=== PATIENT | female | born 2000 | race Caucasian/White ===

== ENCOUNTER → 2023-07-13 10:41 | Outpatient (CLI) | payer OTHER, SELFPAY ==
[2023-07-14 14:47] LABS: Candida species Negative (Negative); Gardnerella vaginalis Negative (Negative); Trichomoas vaginalis Negative (Negative)
== END ==
PROVIDERS: Visit Provider Student in an Organized Health Care Education/Training Program
DX: N89.8 Other specified noninflammatory disorders of vagina (principal)
CPT/HCPCS: 87480; 87510; 87660

== ENCOUNTER → 2023-07-21 15:24 | Outpatient (CLI) | payer OTHER, SELFPAY ==
[2023-07-21 15:49] LABS: Add Manual Diff / Slide Review NO; Basophils Absolute Auto 0 /uL (0-100); Basophils Percent Auto 0.4 % (0-2); Eosinophils Absolute Auto 100 /uL (0-450); Hematocrit 40.1 % (36-46); Hemoglobin 13.6 g/dL (12.0-16.0); Lymphocytes Absolute Auto 1900 /uL (1100-4500); Lymphocytes Percent Auto 14.7 % (25-40); Mean Corpuscular HGB Conc 33.9 % (30-36); Mean Corpuscular Hemoglobin 31.4 PG (26-34); Mean Corpuscular Volume 92.8 fL (80-100); Monocytes Absolute Auto 900 /uL (0-900); Monocytes Percent Auto 7.2 % (3-14); Neutrophils Absolute Auto 9700 /uL (1500-7000); Neutrophils Percent Auto 76.7 % (50-75); Platelet Count 362 X10^3/uL (150-400); Red Blood Cell Count 4.32 X10^6/uL (4.0-5.2); Red Cell Distribution Width 13.2 % (11.6-14.8); White Blood Cell Count 12.7 X10^3/uL (4.5-11.0)
[2023-07-21 17:25] LABS: HCG Quantitative /Beta subunit 24905 mIU/mL
[2023-07-21 18:36] LABS: Urine N gonorrhoeae NOT DETECTED
[2023-07-21 18:58] LABS: Urine Chlamydia NOT DETECTED
[2023-07-23 06:14] LABS: RPR Screen Non Reactive (Non Reactive)
[2023-07-23 10:16] LABS: Varicella IgG Antibody 1757 index (Immune >165)
[2023-07-23 23:40] LABS: HIV 1 & 2 Ab/Ag 4th Gen Combo NEGATIVE (NEGATIVE); Hep C Virus Ab w/Reflex Quant NEGATIVE s/c (NEGATIVE); Hepatitis B Surface Antigen NEGATIVE s/c (NEGATIVE)
== END ==
PROVIDERS: Referring Provider Obstetrics & Gynecology; Visit Provider Obstetrics & Gynecology
DX: Z34.01 Encounter for supervision of normal first pregnancy, first trimester (principal); N91.2 Amenorrhea, unspecified
CPT/HCPCS: 36415; 80055; 83036; 84702; 86787; 86803; 86850; 86900; 86901; 87389; 87491; 87591

== ENCOUNTER → 2023-07-23 09:05 | Outpatient (CLI) | payer OTHER, SELFPAY ==
[2023-07-23 11:02] LABS: HCG Quantitative /Beta subunit 30237 mIU/mL
== END ==
LOC: LAB 09:06
PROVIDERS: Referring Provider Obstetrics & Gynecology; Visit Provider Obstetrics & Gynecology
DX: N91.2 Amenorrhea, unspecified (principal)
CPT/HCPCS: 36415; 84702

== ENCOUNTER 2023-08-07 13:37 | Day surgery (SDC) | payer OTHER, SELFPAY ==
[2023-08-04 13:38] VITALS: BMI 31.2
[2023-08-07] VITALS (8 sets, daily range): BP systolic 110–143; BP diastolic 65–81; PULSE 70–106; RESP 12–22; TEMP 36.2–36.8; O2SAT 98–100; BMI 31.2
--- NOTE | 2023-08-07 | PATH_ITS ---
[facility] Accession Number: [id number] No. of containers..01 Tissue . 01 Material submitted: . product of conception - PRODUCTS OF CONCEPTION . 01 Diagnosis: PRODUCTS OF CONCEPTION, CURETTINGS: Scattered hydropic villi with mildly abnormal villous architecture; see comment. LALO 08/14/2023 1131 Local . 01 Comment: Given the mildly abnormal villous architecture, a p57 immunostain is performed and is positive in the villous stromal cells and the cytotrophoblasts, excluding a complete mole. The differential diagnosis includes a partial mole and hydropic villi. Tissue will be sent for ploidy analysis by flow and the results will be reported in an addendum. . . * This test was developed and its performance characteristics determined by [facility]. It has not been cleared or approved by the U.S. Food and Drug Administration. The FDA has determined that such clearance or approval is not necessary. This test is used for clinical purposes. It should not be regarded as investigational or for research. . 01 Electronically signed: . Rosa Laguna MD, Pathologist NPI- [id number] . 01 Gross description: . Received in formalin with two identifiers and products of conception, are multiple vieyra spongy to membranous soft tissue fragments admixed with muchohemorrhagic material aggregating to 8.1 x 6.2 x 1.3 cm. No tissue is identified. Manager Agricultural sections are submitted in cassettes A1-A2. ([id number]) /LALO 08/11/2023 1141 Local . 01 Pathologist provided ICD-10: O02.1 . 01 CPT . 443051, [id number] Specimen Comment: A courtesy copy of this report has been sent to [facility] Pathology Performed at: 01 [facility] [address], [place], [place] [id number] MD Leodan Winston MD Phone: [phone]
[2023-08-07] MEDS: ACETAMINOPHEN 325 MG TABLET 975 MG PO (15:15)
--- NOTE | 2023-08-07 15:36 | SUR.OPER ---
Lithotomy on padded OR bed, head on pillow, arms secured on padded arm boards at <90 degrees abduction. Legs secured in padded yellow fins stirrups.
--- NOTE | 2023-08-07 16:02 | P.OP.PRE_ITS ---
Pre-operative Note Interval Note History & Physical reviewed/Exam performed by Physician: Yes Changes to H&P: No H&P completed within 30 days and has changed as indicated here:: see H&P from 08/04/23 Patient and I discussed the procedure, and we discussed the risk/benefit/alte rnatives to the procedure. Pt desires to proceed as planned.
[2023-08-07] MEDS: SILVER NITRATE STICK 2 EACH TOP (16:48)
--- NOTE | 2023-08-07 16:54 | P.OP_ITS ---
Operative Date/Time/Diagnoses Date of procedure: 08/07/23 Time of procedure: 16:30 Pre-op diagnosis: Missed Post-op diagnosis: same Procedure & Clinicians Procedure: Suction dilation and curettage Same procedure as scheduled: Yes Indications: 23yo [id number] with missed . In review of her options, patient desired surgical management, thus she was counseled and consented for a suction D&C. Surgeon: Cassandra Funez Click Yes if Unassisted: Yes Anesthesia Type: General Operative Notes Findings: Small amount of tissue obtained. Slow uterine bleeding noted at the end of the case. Specimen(s): other (products of conception) Estimated Blood Loss (mL): 100 Blood products transfused: none Procedure in detail: The risks, benefits, indications and alternatives of the procedure were reviewed with the patient and informed consent was obtained. The pt was taken to the operating room where anesthesia was obtained without difficulty. The pt was then placed in the low lithotomy position using gel-padded Kwan Stirrups. SCDs were placed bilaterally for VTE prophylaxis. The pt was then prepped and draped in the sterile fashion. A sterile speculum was placed in the patient?s vagina and the cervix was visualized.? A single tooth tenaculum was used to grasp the anterior lip of the cervix. The cervix was then gently, serially dilated to a size 8mm Hegar dilator. A 7mm curved suction catheter was then introduced into the uterine cavity and gently advanced to the uterine fundus. The suction device was then activated to 60mmHg and the catheter was rotated to clear the uterus of products of conception. Several passes were performed with a small amount of tissue obtained. A gentle, sharp curettage was then performed until a gritty texture was noted. All tissue was sent to pathology for review. The single tooth tenaculum was then removed from the anterior lip of the cervix. The tenaculum sites were noted to be hemostatic with pressure and silver nitrate. All instruments were then removed from the patient?s vagina. At the completion of the case the sponge and needle counts were correct x 2. The patient tolerated the procedure well and was taken to the PACU in stable condit ion. Complications: none Post-operative Condition: stable Disposition: PACU Plan for aftercare: Discharge to home once meeting criteria.
--- NOTE | 2023-08-07 17:48 | SUR.PHASEII ---
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 Pt able to contact her significant otyherr post procedure.
== END 2023-08-07 17:55 | disposition home or self-care (01) ==
PROVIDERS: Referring Provider Student in an Organized Health Care Education/Training Program; Visit Provider Student in an Organized Health Care Education/Training Program
PROC: (CPT 58120; principal; 2023-08-07 14:45)
DX: O02.1 Missed abortion (principal)
CPT/HCPCS: 59820; J1100; J1885; J2250; J2405; J2704; J3010

== ENCOUNTER → 2023-08-14 11:38 | Outpatient (CLI) | payer OTHER, SELFPAY | PROVIDERS: Referring Provider Obstetrics & Gynecology; Visit Provider Obstetrics & Gynecology | DX: Z34.00 Encounter for supervision of normal first pregnancy, unspecified trimester (principal) | CPT/HCPCS: 87086 ==

== ENCOUNTER → 2023-08-24 10:26 | Outpatient (CLI) | payer OTHER, SELFPAY | PROVIDERS: Referring Provider Student in an Organized Health Care Education/Training Program; Visit Provider Student in an Organized Health Care Education/Training Program | DX: O02.1 Missed abortion (principal) | CPT/HCPCS: 36415; 84702 ==

== ENCOUNTER → 2023-10-07 12:46 | Outpatient (CLI) | payer OTHER, SELFPAY ==
[2023-10-07 15:17] LABS: HCG Quantitative /Beta subunit < 2.39 mIU/mL
== END ==
LOC: LAB 12:47
PROVIDERS: Referring Provider Student in an Organized Health Care Education/Training Program; Visit Provider Student in an Organized Health Care Education/Training Program
DX: O02.1 Missed abortion (principal)
CPT/HCPCS: 36415; 84702

== ENCOUNTER 2025-02-16 17:20 | Emergency (ER) | payer OTHER, SELFPAY ==
[2025-02-16] VITALS (9 sets, daily range): BP systolic 102–140; BP diastolic 58–89; PULSE 74–106; RESP 18; TEMP 36.6; O2SAT 98–100; BMI 33.6
--- NOTE | 2025-02-16 17:41 | DI.US.S_ITS ---
PROCEDURE: US OB <= 14 WEEKS FETUS INDICATIONS: Possible retained products of conception TECHNIQUE: Real-time scanning was performed of the fetus and maternal pelvic organs, with image documentation. Endovaginal scanning was also performed to better visualize the fetus and maternal ovaries. COMPARISON: [facility], US, US OB <= 14 WEEKS FETUS, 07/21/2023, 15:10. FINDINGS: No ultrasound evidence of intrauterine gestational sac, no yolk sac, no pole. Differential diagnosis includes early normal intrauterine , abnormal intrauterine , cannot exclude ectopic . Uterus measures approximate 10.5 x 4.2 x 5.3 cm. Endometrial echo complex measures 2 mm. Left ovary measures approximately 3.7 x 2.3 x 1.9 cm. Right ovary measures approximately 4.3 by 2.4 by 2.8 cm with 1.1 cm anechoic structure may represent corpus luteum cyst or other structure. IMPRESSION: of unknown location as discussed above. Follow-up serial beta hCG and or ultrasound. Dictated by: Quoc Recinos M.D. on 02/16/2025 at 20:16 Approved by: Quoc Recinos M.D. on 02/16/2025 at 20:23
[2025-02-16 17:58] LABS: Add Manual Diff / Slide Review NO; Hematocrit 38.3 % (36-46); Hemoglobin 13.2 g/dL (12.0-16.0); Lymphocytes Absolute Auto 2100 /uL (1100-4500); Mean Corpuscular HGB Conc 34.5 % (30-36); Mean Corpuscular Hemoglobin 31.6 PG (26-34); Mean Corpuscular Volume 91.8 fL (80-100); Platelet Count 385 X10^3/uL (150-400)
--- NOTE | 2025-02-16 18:07 | ED.GENADULT ---
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 Patient has had intermittent spotting for the last one week, and seen multimedia technician providers [facility], had an ultrasound last week, and yesterday had pelvic ultrasound at [facility] showing 5 week gestational sac. Today she has had increased cramping and some bleeding, about 11:00 a.m. had small amount of tissue with clots, about 3:00 p.m. in toilet bowl had more silver/lopez tissue passage. Awaiting ultrasound here had further small amount of tissue mixed with clot. No recent or prior Rhogam shots recalled by patient. Related Data Previous Rx's ?Medication ?Instructions ?Recorded naproxen 500 mg tablet 500 mg PO Q8H PRN pain #30 tabs 01/20/25 tranexamic acid 650 mg tablet 1,300 mg (2 x 650 mg) PO TID Heavy 01/20/25 periods #30 tabs Allergies Allergy/AdvReac Type Severity Reaction Status Date / Time diphenhydramine Allergy Mild Hives Verified 02/16/25 17:28 Patient History Medical History (Updated 02/16/25 @ 21:33 by Rafa Amaro MD) Menstrual irregularity PMS (premenstrual syndrome) Hallucination, auditory Hallucination, visual Near sighted Generalized anxiety disorder (~2022) Missed Abnormal Pap smear of cervix Anorexia nervosa Surgical History (Updated 08/23/23 @ 17:57 by Kate Taylor) Anesthesia H/O dilation and curettage [place] teeth extracted (~2022) Family History (Updated 08/23/23 @ 18:00 by Kate Taylor) Mother Diabetes mellitus Hypertension Gestational diabetes Preeclampsia Overweight Father Generalized anxiety disorder Depression Eating disorder Sister Generalized anxiety disorder Depression Autism spectrum disorder Brother Autism spectrum disorder ADHD Unable to control anger Grandmother Alcoholism Generalized anxiety disorder Depression Hypertension Anxiety Mental health problem Overweight Grandfather Heart attack Diabetes mellitus Hypertension Grandmother Eating disorder Family history of type 2 diabetes mellitus Hypertension Mental health problem Grandfather Hypertension Social History marital status: unmarried,living together number of children: 0 household members: significant other lives independently: Yes caregiver/support person: No housing: condominium (duplex house) pets and animals: No education level: high school 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, 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 ) current occupational exposures/hazards: No special anat needs: No travel history: recent ([place], domestic) seatbelt use: always helmet use: Yes water heater temp set < 120 deg: Yes working smoke detector in home: Yes fire extinguisher in home: Yes carbon monox detector in home: Yes firearms in home: No do you feel safe at home: Yes Smoking Status: Never smoker second hand exposure: No alcohol intake: former substance use type: does not use during the past year weight has: other (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 HEAD: Atraumatic. Normocephalic. EYES: Pupils equal round and reactive. Extraocular motions intact. No scleral icterus. No injection or drainage. ENT: Nose without bleeding, purulent drainage. NECK: Trachea midline. Non tender CARDIOVASCULAR: Regular rate and rhythm without murmurs, gallops, or rubs. RESPIRATORY: Clear to auscultation. Breath sounds equal bilaterally. No wheezes, rales, or rhonchi. GASTROINTESTINAL: Abdomen soft, non-tender, nondistended. EXTREMITIES: No edema or joint tenderness. BACK: Nontender without deformity or crepitance. No flank tenderness. NEURO: AOx3. Motor functions grossly nonfocal. SKIN: No rash or erythema of visible areas Initial Vital Signs Initial Vital Signs: Vital Signs Pulse Rate 105 H 02/16/25 17:26 Pulse Oximetry 100 02/16/25 17:26 Course Orders Ordered: ED Orders 02/16/25 17:41 US OB <= 14 weeks fetus Stat 02/16/25 17:51 CBC Auto Diff [Complete Blood Count AUTO DIFF] Stat CMP [Comprehensive Metabolic Panel] Stat PT [Prothrombin Time INR] Stat PTT Partial Thromboplastin Nick Stat Test [HCG Quantitative /Beta subunit] Stat Vital Signs Vital signs: Vital Signs - 8 hr 02/16/25 17:26 02/16/25 17:28 02/16/25 17:30 Temperature 98 F Pulse Rate 105 H 99 H Respiratory Rate 18 Blood Pressure 140/89 125/78 Pulse Oximetry 100 100 Oxygen Delivery Method Room Air 02/16/25 17:30 02/16/25 17:45 02/16/25 17:45 Temperature Pulse Rate 91 H 106 H Respiratory Rate Blood Pressure 129/76 Pulse Oximetry 100 100 Oxygen Delivery Method 02/16/25 19:32 02/16/25 19:32 02/16/25 20:00 Temperature Pulse Rate 83 Respiratory Rate Blood Pressure 113/66 102/69 Pulse Oximetry 98 Oxygen Delivery Method 02/16/25 20:00 Temperature Pulse Rate 79 Respiratory Rate Blood Pressure Pulse Oximetry 98 Oxygen Delivery Method Medical Decision Making Lab Data Lab results reviewed: Yes I reviewed the patient's lab results. Lab results narrative: White blood cell count 10331, hemoglobin 13.2, platelets adequate. Glucose 108. Renal function, serum CO2, electrolytes normal. Liver functions normal. Serum quantitative hCG 279. 02/16/25 17:51 02/16/25 17:51 Labs: Lab Results 02/16/25 Range/Units 17:51 WBC 12.1 H (4.5-11.0) X10^3/uL RBC 4.17 (4.0-5.2) X10^6/uL Hgb 13.2 (12.0-16.0) g/dL Hct 38.3 (36-46) % MCV 91.8 (80-100) fL MCH 31.6 (26-34) PG MCHC 34.5 (30-36) % RDW 13.3 (11.6-14.8) % Plt Count 385 (150-400) X10^3/uL Neut % (Auto) 72.4 (50-75) % Lymph % (Auto) 17.7 L (25-40) % [place] % (Auto) 8.0 (3-14) % Eos % (Auto) 1.5 L (2-4) % Baso % (Auto) 0.4 (0-2) % Neut # (Auto) 8800 H (1873-5717) /uL Lymph # (Auto) 2100 (8853-8522) /uL [place] # (Auto) 1000 H (0-900) /uL Eos # (Auto) 200 (0-450) /uL Baso # (Auto) 0 (0-100) /uL PT 12.4 (9.4-12.5) SECONDS INR 1.1 (0.9-1.3) APTT 28 (25.1-36.5) SECONDS Sodium 138 (137-145) mmol/L Potassium 3.9 (3.4-5.1) mmol/L Chloride 105 (98-107) mmol/L Carbon Dioxide 23 (22-32) mmol/L BUN 9 (7-17) mg/dL Creatinine 0.68 (0.52-1.04) mg/dL Estimated GFR > 60 (>60) mL/min BUN/Creatinine Ratio 13.2 (6-22) Glucose 108 H (70-99) mg/dL Calcium 9.7 (8.4-10.2) mg/dL Total Bilirubin 0.3 (0.2-1.3) mg/dL AST 24 (14-36) IU/L ALT 19 (<35) IU/L Alkaline Phosphatase 52 (38-126) U/L Total Protein 8.2 (6.3-8.2) g/dL Albumin 4.9 (3.5-5.0) g/dL Globulin 3.3 (1.7-4.1) g/dL Albumin/Globulin Ratio 1.5 (1.0-2.8) HCG, Quant 279.76 mIU/mL Imaging Data Ultrasound pelvis: Radiologist's Impression: [address] [address] Ultrasound Report Signed Patient: Enid Kumar MR#: [id number] : 2000 Acct:[id number] Age/Sex: 24 / F Date of Service: 02/16/25 Loc: ED Accession Number: [id number] Procedure: US OB <= 14 weeks fetus Ordering Provider: Ike Russell MD PROCEDURE: US OB <= 14 WEEKS FETUS INDICATIONS: Possible retained products of conception TECHNIQUE: Real-time scanning was performed of the fetus and maternal pelvic organs, with image documentation. Endovaginal scanning was also performed to better visualize the fetus and maternal ovaries. COMPARISON: [facility], US, US OB <= 14 WEEKS FETUS, 07/21/2023, 15:10. FINDINGS: No ultrasound evidence of intrauterine gestational sac, no yolk sac, no pole. Differential diagnosis includes early normal intrauterine , abnormal intrauterine , cannot exclude ectopic . Uterus measures approximate 10.5 x 4.2 x 5.3 cm. Endometrial echo complex measures 2 mm. Left ovary measures approximately 3.7 x 2.3 x 1.9 cm. Right ovary measures approximately 4.3 by 2.4 by 2.8 cm with 1.1 cm anechoic structure may represent corpus luteum cyst or other structure. IMPRESSION: of unknown location as discussed above. Follow-up serial beta hCG and or ultrasound. Dictated by: Quoc Recinos M.D. on 02/16/2025 at 20:16 Approved by: Quoc Recinos M.D. on 02/16/2025 at 20:23 MDM Narrative Medical decision making narrative: 24-year-old female with prior miscarriage leading to D&C last year, known blood type A-negative, current with EDC 09/20/2025 would give EGA 9 weeks 3 days, having intermittent cramping and spotting followed by [facility] women[facility] providers, ultrasound last week, ultrasound done there yesterday showed 5 week gestational sac, seems consistent with missed Ab. Through the day today having cramping and passage of small amounts of tissue. Labs sent. Afebrile, SIRS screen negative. Keep NPO for now. Declines pain medications when offered. Cramping and vaginal bleeding small clots and small amounts of tissue today, history most consistent with missed Ab by verbal report US showing 5 week gestational sac yesterday, and now likely passage of tissue. Ultrasound ordered to screen for completion of miscarriage, to look for retained products of conception. Lab data: White blood cell count 76232, hemoglobin 13.2, platelets adequate. Glucose 108. Renal function, serum CO2, electrolytes normal. Liver functions normal. Serum quantitative hCG 279. 1930, Pelvic ultrasound ordered from triage, performed, report is still pending. Awaiting records from [facility], none received so far. Ultrasound pelvis shows no contents intrauterine, report mentions concern for ectopic , however clinical context consistent with a completed miscarriage. See radiology report. 2129, case discussed with multimedia technician on-call Dr. Gallegos who agrees with the above assessment, return precautions discussed. Discharged home. Discharge Plan Departure Patient Disposition: Home Clinical Impression: Complete miscarriage Activity Restrictions/Additional Instructions: Known recent 1st trimester early , by due date would expect 9 weeks 3 days gestational age today, reportedly had outside facility ultrasound yesterday showing 5 weeks gestational sac size, suspect blighted ovum that stopped developing by that history. Passage of tissue with clumps clot earlier today and prior to ultrasound as well. On ultrasound today there is no contents that was mentioned within the uterus. The report mentions concern for ectopic but the clinical context sounds like complete miscarriage as explanation for empty uterus now. Case discussed with on-call gynecology Dr. Gallegos who agreed with the above assessment. There did not seem to be any mentioned of any retained products of conception that would warrant discussion about intervention such as dilation and curettage procedure. Symptoms should continue to improve. Take Tylenol and or Motrin as needed for any cramping discomfort. Consider follow up with your gynecology providers at your home [facility] early next week. Return to this/nearest emergency department for any change worsening symptoms or any concerns prior. Prescriptions: No Action tranexamic acid 650 mg tablet 1,300 mg PO TID Qty: 30 12RF Rx Instructions: Start medication with the start of each period naproxen 500 mg tablet 500 mg PO Q8H PRN (Reason: pain) Qty: 30 12RF Rx Instructions: For best effect, start medication 1-2 days prior to expected onset of period Referrals: [facility] [Primary Care Provider, Family Practice] Stand Alone Forms: Patient Portal/API
[2025-02-16 18:18] LABS: Alanine Aminotransferase 19 IU/L (<35); Albumin 4.9 g/dL (3.5-5.0); Albumin Globulin Ratio 1.5 (1.0-2.8); Alkaline Phosphatase 52 U/L (38-126); Blood Urea Nitrogen 9 mg/dL (7-17); Calcium 9.7 mg/dL (8.4-10.2); Carbon Dioxide 23 mmol/L (22-32); Chloride 105 mmol/L (98-107); Estimated Glomerular Filt Rate > 60 mL/min (>60); Globulin 3.3 g/dL (1.7-4.1); Glucose 108 mg/dL (70-99); HEMOLYSIS < 15 (0-50); INR 1.1 (0.9-1.3); PTT Partial Thromboplastin Tim 28 SECONDS (25.1-36.5); Potassium 3.9 mmol/L (3.4-5.1); Prothrombin Time 12.4 SECONDS (9.4-12.5); Sodium 138 mmol/L (137-145); Total Protein 8.2 g/dL (6.3-8.2)
[2025-02-16 18:30] LABS: HCG Quantitative /Beta subunit 279.76 mIU/mL
== END 2025-02-16 21:40 | disposition home or self-care (01) ==
PROVIDERS: Emergency Medicine; Emergency Provider Emergency Medicine
DX: O03.9 Complete or unspecified spontaneous abortion without complication (principal)
CPT/HCPCS: 36415; 76801; 76817; 80053; 84702; 85025; 85610; 85730; 99283; 99284